=== PATIENT | male | born 1970 | race Two or more races ===

== ENCOUNTER 2017-11-06 15:00 | Outpatient (CLI) | payer OTHER | END 2017-11-06 15:08 | disposition home or self-care (01) | LOC: TOM 15:00 | DX: R10.10 Upper abdominal pain, unspecified (principal) ==

== ENCOUNTER → 2018-10-21 07:35 | Outpatient (CLI) | payer OTHER | END | disposition home or self-care (01) | LOC: LAB 07:35 → EDBD 07:35 | DX: I10 Essential (primary) hypertension (principal) ==

== ENCOUNTER → 2018-10-22 | Outpatient (CLI) | payer OTHER | END | disposition home or self-care (01) | LOC: NUCLEAR 09:00 | DX: R07.89 Other chest pain (principal); R00.2 Palpitations ==

== ENCOUNTER 2021-08-13 10:40 | Outpatient (CLI) | payer OTHER | END 2021-08-16 10:55 | disposition home or self-care (01) | LOC: PPH VACUNA 10:40 | PROVIDERS: ATTEND Emergency Medicine Pediatric Emergency Medicine | DX: Z23 Encounter for immunization (principal) ==

== ENCOUNTER 2021-10-09 06:38 | Day surgery (SDC) | payer OTHER | END 2021-10-09 09:55 | disposition home or self-care (01) | LOC: AMB-ENDOS 06:38 | PROVIDERS: ATTEND Surgery | DX: D12.3 Benign neoplasm of transverse colon (principal); K64.8 Other hemorrhoids; Z20.822 Contact with and (suspected) exposure to COVID-19 ==

== ENCOUNTER 2023-06-26 07:57 | Outpatient (CLI) | payer OTHER | END 2023-06-26 10:00 | disposition home or self-care (01) | LOC: TOM 07:57 | PROVIDERS: ATTEND Surgery | DX: R10.32 Left lower quadrant pain (principal); K57.32 Diverticulitis of large intestine without perforation or abscess without bleeding ==